=== PATIENT | female | born 1940 | race Caucasian/White ===

== ENCOUNTER 2024-06-04 08:40 | Day surgery (SDC) | payer MEDICARE, OTHER ==
[2024-06-04] VITALS (7 sets, daily range): BP systolic 91–137; BP diastolic 45–77; PULSE 56–73; RESP 16; TEMP 97.7; O2SAT 93–95
[~2024-06-04] VITALS: Ht 165.1 cm; Wt 87.8 kg
[~2024-06-04 08:40] MED LIST: ceFAZolin 2gm in dextrose, iso 50 ML IV ONE
[2024-06-04 09:30] LABS: BASOPHILS # (AUTO) 0.1 X10'3 (0-0.2); BASOPHILS % (AUTO) 0.8 % (0-1); EOSINOPHILS # (AUTO) 0.3 X10'3 (0-0.9); EOSINOPHILS % (AUTO) 3.4 % (0-6); HEMATOCRIT 42.9 % (35.0-45.0); HEMOGLOBIN 14.3 g/dl (12.0-16.0); LYMPHOCYTES # (AUTO) 1.2 X10'3 (1.1-4.8); LYMPHOCYTES % (AUTO) 12.9 % (21-51); MEAN CORPUSCULAR HGB CONC 33.3 g/dL (33.0-36.5); MEAN CORPUSCULAR VOLUME 86.9 FL (78-98); MEAN PLATELET VOLUME 7.4 FL (7.4-10.4); MONOCYTES # (AUTO) 0.5 X10'3 (0-0.9); MONOCYTES % (AUTO) 5.5 % (2-12); NEUTROPHILS # (AUTO) 7.1 X10'3 (1.8-7.7); NEUTROPHILS % (AUTO) 77.4 % (42-75); PLATELET COUNT 269 X10'3 (140-440); RED BLOOD COUNT 4.93 X10'6 (4.20-5.60); RED CELL DISTRIBUTION WIDTH 14.5 % (11.5-14.5); WHITE BLOOD COUNT 9.1 X10'3 (4.5-11.0)
[2024-06-04] MEDS ORDERED: UBID50TA3 PO (09:37)
[2024-06-04] MEDS ORDERED: ATOR40TA72 PO (09:37)
[2024-06-04] MEDS ORDERED: ESCI5TAB17 PO (09:37)
[2024-06-04] MEDS ORDERED: LEVO25TA7 PO (09:37)
[2024-06-04] MEDS ORDERED: SPIR25TA5 PO (09:37)
[2024-06-04] MEDS ORDERED: LISI40TA13 PO (09:37)
[2024-06-04] MEDS ORDERED: ASPI81TA52 PO (09:37)
[2024-06-04] MEDS ORDERED: CHOL500050 PO (09:37)
[2024-06-04] MEDS ORDERED: CYAN500T78 PO (09:37)
[2024-06-04] MEDS ORDERED: AMLO2.5T5 PO (09:37)
[2024-06-04] MEDS ORDERED: BISO10TA16 PO (09:37)
[2024-06-04] MEDS ORDERED: FAMO-129 PO (09:37)
[2024-06-04 09:43] LABS: ALBUMIN 3.6 G/DL (3.4-5.0); ANION GAP 10 (8-16); BLOOD UREA NITROGEN 22 MG/DL (7-18); BUN/CREATININE RATIO 20.8 (10.0-20.0); CALCIUM 9.1 MG/DL (8.5-10.1); CHLORIDE 105 MMOL/L (99-107); CREATININE 1.06 MG/DL (0.40-0.90); GLUCOSE 114 MG/DL (70-104); MAGNESIUM 1.9 MG/DL (1.5-2.4); PROTHROMBIN TIME 10.5 SECONDS (9.0-12.0); SODIUM 140 MMOL/L (135-145); TOTAL CARBON DIOXIDE 24.9 MMOL/L (24-32); eCRCL 37 ML/MIN; eGFR 50 ML/MIN
[2024-06-04] MEDS: clindamycin-Cleocin 900mg/D5W 50 ML IV ONE (10:37)
[2024-06-04] MEDS: normal saline 1,000 ML IV SCH (10:38)
[2024-06-04] MEDS ORDERED: midazolam 1 mg/ML 2ml injection ONE ×2 (12:48→13:37)
[2024-06-04] MEDS ORDERED: LIDOcaine 1% W/epiNEPHrine 1:100,000 20ml vial ONE (12:48)
[2024-06-04] MEDS ORDERED: fentaNYL/PF 50MCG/1 ML 2ML syringe ONE (12:48)
[2024-06-04] MEDS ORDERED: vancomycin 1,000mg inj ONE (12:48)
== END 2024-06-04 16:45 | disposition home or self-care (01) ==
LOC: SSTAY O 08:40
PROVIDERS: ATTEND Internal Medicine Cardiovascular Disease
DX: T82.111A Breakdown (mechanical) of cardiac pulse generator (battery), initial encounter (principal); I42.0 Dilated cardiomyopathy; I11.0 Hypertensive heart disease with heart failure; I50.9 Heart failure, unspecified; E11.9 Type 2 diabetes mellitus without complications; E03.9 Hypothyroidism, unspecified; E78.5 Hyperlipidemia, unspecified; I48.91 Unspecified atrial fibrillation; Z85.3 Personal history of malignant neoplasm of breast; Z79.82 Long term (current) use of aspirin; Z79.890 Hormone replacement therapy; Z79.899 Other long term (current) drug therapy; Z90.13 Acquired absence of bilateral breasts and nipples; Z98.890 Other specified postprocedural states; Z88.5 Allergy status to narcotic agent; Y83.8 Other surgical procedures as the cause of abnormal reaction of the patient, or of later complication, without mention of misadventure at the time of the procedure; Y92.89 Other specified places as the place of occurrence of the external cause
CPT/HCPCS: 33264; 36415; 80048; 83735; 85025; 85610; 93005; 99152; 99153; A4565; A6258; C1882; J2250; J3010; J3370; J3490; J7030; 33229